=== PATIENT | male | born 1960 | race Caucasian/White ===

== ENCOUNTER 2024-03-29 08:52 | Inpatient (IN) | payer SELFPAY ==
[2024-03-29] VITALS (14 sets, daily range): BP systolic 132–176; BP diastolic 87–99; PULSE 100–120; RESP 16–19; TEMP 36.4–36.7; O2SAT 96–100
--- NOTE | ~2024-03-29 | XR_ITS ---
EXAMINATION: XR chest 2V DATE: 03/29/2024 09:25 INDICATION: Not feeling well. TECHNIQUE: Frontal and lateral views of the chest were obtained. COMPARISON: None. FINDINGS: There is no pneumonia, pleural effusion, or pneumothorax. The heart size is normal. IMPRESSION: 1. No acute cardiopulmonary disease. Reviewed, dictated and finalized at location A.
--- NOTE | ~2024-03-29 | US_ITS ---
EXAMINATION: US right upper quadrant DATE: 04/01/2024 19:22 INDICATION: Abnormal liver function tests. TECHNIQUE: Multiple grayscale and Doppler ultrasound images of the abdomen were obtained. COMPARISON: None FINDINGS: The visualized portions of the head and body of the pancreas are normal. There is diffuse h epatic steatosis. There is normal flow in main portal vein. The gallbladder is normal in size. No gal lstones or gallbladder wall thickening. There is no sonographic Hunt's sign. The common duct is nor mal and measures 3 mm. IMPRESSION: 1. Diffuse hepatic steatosis. Reviewed, dictated and finalized at location A.
--- NOTE | 2024-03-29 09:16 | ECG_ITS ---
Test Date: 2024-03-29 13:27:50 Measurements Intervals [place] Rate: 101 P: 0 ID: 0 QRS: -64 QRSD: 103 T: 60 QT: 342 QTc: 445 Interpretive Statements SINUS TACHYCARDIA LEFT ANTERIOR FASCICULAR BLOCK [QRS AXIS <= -45, QR IN I, RS IN II] ABNORMAL ECG No previous ECG available for comparison Electronically Signed On 03-31-2024 07:10:16 CDT by Cornelio Estrada M.D.
[2024-03-29 09:53] LABS: Add Urine Microscopic? NO; Appearance Urine Clear (Clear); Bilirubin Urine Negative (Negative); Blood Urine Negative (Negative); Color Urine Yellow (Yellow); Glucose Urine UA Negative (Negative); Ketones Urine Negative (Negative); Leukocyte Esterase Ur Negative LEU/UL (Negative); Nitrate Urine Negative (Negative); Protein Urine Negative (Negative); Specific Grav Ur 1.006 (1.001-1.035)
[2024-03-29 10:02] LABS: Alanine Aminotransferase 224 U/L (6-50); Albumin Level 4.5 g/dL (3.5-5.1); Alkaline Phosphatase 90 U/L (38-126); Anion Gap 20 mmol/L (4-12); Aspartate Amino Transferase 243 U/L (17-59); Bilirubin,Total 1.1 mg/dL (0.2-1.3); Blood Urea Nitrogen 5 mg/dL (9-20); Calcium 8.3 mg/dL (8.4-10.2); Carbon Dioxide 19 mmol/L (22-30); Chloride 81 mmol/L (98-107); Estimated CRCL calculation 126 ml/min; Estimated Glomerular Filt Rate > 60; Glucose 105 mg/dL (65-110); Sodium 120 mmol/L (137-145)
[2024-03-29 10:04] LABS: Ethanol 297 mg/dL (<10)
[2024-03-29] MEDS: SODIUM CHLORIDE 0.9% IV 1,000 ML 999 ML IV CONT ×3 (10:21→11:21)
--- NOTE | 2024-03-29 10:28 | ED.ALCOHOL ---
HPI - Alcohol General Chief Complaint: Alcohol Stated Complaint: tremors from etoh Time Seen by Provider: 03/29/24 09:58 History of Present Illness HPI narrative: This is a 63-year-old male with a past medical different for hypertension and alcohol use disorder. Today patient presents in custody from police after a DUI. Patient presented to the police station and told him he was not feeling well so they brought him to the emergency department for evaluation. Patient states he feels nauseous and having tremors and feels like he is going through alcohol withdrawal. His last drink was 3 hours prior to arrival to the emergency department. He has been binge drinking a case of beer for the last 5 days. Patient states he has gone through withdrawals before but has no history of withdrawal seizures. He states he has had periods of sobriety lasting approximately 6 months but does have frequent binge drinking episodes. Presently is awake alert and oriented states that he has tremors and feeling dehydrated as well nauseous. Denies any chest pain, shortness a breath, abdominal pain, back pain, fever, chills. Is answering all my questions appropriately and does appear clinically intoxicated at this time. Patient is not taking medications presently. Related Data Allergies Allergy/AdvReac Type Severity Reaction Status Date / Time No Known Allergies Allergy Mild Unverified 11/13/04 17:44 Review of Systems Review of Systems: As reviewed above in HPI Exam Narrative: GENERAL: Well-appearing well-nourished but is acutely intoxicated, clinically dehydrated. HEAD: [Normocephalic, atraumatic.] EYES: [PERRLA and EOMI.] No nystagmus ENT: Nares clear, no rhinorrhea or epistaxis. Mucous membranes dry, no tongue fasciculations noted. NECK: Supple. CHEST: [Clear to auscultation. No respiratory distress.] HEART: [Regular rate and rhythm]. No murmur heard. [Normal peripheral pulses.] ABDOMEN: [Soft, nondistended], [nontender], [No rigidity or guarding] EXTREMITIES: Normal range of motion. [No edema.] SKIN: Warm, dry, no rash. NEURO: [No focal deficits]. Alert and oriented [x3.] Fine tremor in the bilateral upper extremities, no ataxia, awake alert and answering all questions appropriately. PSYCH: [Normal mood and affect.] Course Vital Signs Vital signs: Vital Signs Temperature 36.6 C 03/29/24 09:11 Pulse Rate 102 H 03/29/24 09:11 Respiratory Rate 18 03/29/24 09:11 Blood Pressure 148/93 H 03/29/24 09:11 Pulse Oximetry 97 03/29/24 09:11 Oxygen Delivery Room Air 03/29/24 09:11 Temperature 36.6 C 03/29/24 09:11 Pulse Rate 102 H 03/29/24 09:11 Respiratory Rate 18 03/29/24 09:11 Blood Pressure 148/93 H 03/29/24 09:11 Pulse Oximetry 97 03/29/24 09:11 Oxygen Delivery Room Air 03/29/24 09:11 MDM - Alcohol MDM Narrative Medical decision making narrative: This is a 63-year-old male significant alcohol use history who presents to the emergency department in police custody patient was arrested for DUI this morning. He states last drink was 3 hours prior to arrival and states he feels like he is going to his traumas he is nauseous and having bilateral extremity shaking. Has a history of withdrawal seizures. He does not have any tongue fasciculations examination and very minor fine tremor noted in bilateral upper extremities. He is awake alert oriented answers all my questions appropriately. He does appear intoxicated but not slurring his speech and conscious presently. Differential diagnosis at this time includes alcohol intoxication, less likely alcohol withdrawal, electrolyte disturbances, hyponatremia, vitamin deficiency. Workup was ordered including electrolytes, CBC, chest x-ray, alcohol level. He was given a 2 L normal saline bolus. Initial laboratory studies showed significant hyponatremia while a sodium 120 of chloride of 81. This will be repeated for accuracy prior to treatment. He was also
[2024-03-29 10:31] LABS: Basophils Percent Auto 0.7 % (0.2-1.2); Eosinophils Absolute Auto 0.1 K/mm3 (0-0.3); Eosinophils Percent Auto 1.2 % (0-4.4); Hematocrit 47.4 % (42.0-52.0); Hemoglobin 17.1 g/dL (14.0-18.0); Immature Granulocyte Absolute 0.01 K/mm3 (0.00-0.031); Immature Granulocyte Percent A 0.2 % (0-0.5); Immature Platelet Fraction Pct 5.5 % (0.9-11.2); Lymphocytes Absolute Auto 0.82 K/mm3 (0.9-3.2); Mean Corpuscular HGB Conc 36.1 g/dl (32-36); Mean Corpuscular Hemoglobin 32.3 pg (26-34); Mean Corpuscular Volume 89.4 fl (80-100); Mean Platelet Volume 9.4 fl (7.4-10.4); Monocytes Absolute Auto 0.5 K/mm3 (0.1-0.6); Monocytes Percent Auto 11.3 % (2.6-8.5); Neutrophils Absolute Auto 2.9 K/mm3 (1.3-6.7); Neutrophils Percent Auto 67.6 % (45.5-73.1); Platelet Count Result 96 k/mm3 (150-375); Red Cell Distribution Width 13.2 % (11.5-14.5); White Blood Count 4.3 K/mm3 (4.5-10.0)
[2024-03-29] MEDS: FOLIC ACID 1 MG TABLET PO (11:20)
[2024-03-29] MEDS: THIAMINE HCL 200 MG/2 ML VIAL 300 MG IV PUSH (11:24)
[2024-03-29] MEDS: MULTIVITAMINS-12 INJ VIAL 1 5 ML, MULTIVITAMINS-12 INJ VIAL 2 5 ML in SODIUM CHLORIDE 0... 100 ML IV CONT (11:24)
[2024-03-29] MEDS: MAGNESIUM SULF 2 GM/WATER 50ML 2 GM/50 ML BAG IVPB (11:25)
[2024-03-29 12:23] LABS: Anion Gap 16 mmol/L (4-12); Blood Urea Nitrogen 4 mg/dL (9-20); Calcium 7.6 mg/dL (8.4-10.2); Carbon Dioxide 17 mmol/L (22-30); Chloride 89 mmol/L (98-107); Estimated CRCL calculation 149 ml/min; Estimated Glomerular Filt Rate > 60; Glucose 88 mg/dL (65-110); Potassium 3.8 mmol/L (3.4-5.0); Sodium 122 mmol/L (137-145)
[2024-03-29] MEDS: PHENobarbitaL sodium (*CRX) 130 MG/ML VIAL 520 MG IV PUSH (15:08)
[2024-03-29] MEDS: ONDANSETRON INJ 4 MG/2 ML VIAL IV PUSH ×2 (15:08→21:02)
[2024-03-29] MEDS: SODIUM CHLORIDE 0.9% IV 1,000 ML 125 ML IV CONT (15:08)
--- NOTE | 2024-03-29 16:29 | PM.IMHP ---
H&P: HPI History of Present Illness Date/Time: 03/29/24 16:29 Chief Complaint: alcohol withdrawal Narrative: This is a 63-year-old male with a past medical history alcoholism and hypertension who presented to the hospital with nausea and tremors. He presented in the custody of police after receiving a DUI and was reported to not be feeling well at the police station and they brought him here for further evaluation. patient states that he drinks about 1 case of beer a day on average and does not eat a balanced diet. He reports tremors, nausea and headache. He denies any vomiting, diarrhea, abdominal pain, chest pain, shortness a breath, fever, chills. He denies suicidal ideations at this time however whenever he was in college he did have suicidal ideations. Workup in the hospital included chest x-ray which was negative. Initial labs showed a sodium of 120, chloride 81, bicarb 19, AST 243, ALT 224. UA was negative. Alcohol level was 297. Patient received 2 L of normal saline, thiamin, folic acid, magnesium, Zofran, and 2 doses of phenobarbital all in the ED. Review of Systems Review of Systems: All systems reviewed & are unremarkable except as noted in HPI and below Constitutional: Constitutional: Reports as per HPI and Reports no additional constitutional complaints Eyes: Eyes: Reports as per HPI and Reports no additional eye complaints ENT: Reports system reviewed and no additional complaints, except as documented and Reports as per HPI Cardiovascular: Cardiovascular: Reports as per HPI and Reports no additional cardiovascular complaints Respiratory: Respiratory: Reports as per HPI and Reports no additional respiratory complaints Gastrointestinal: Gastrointestinal: Reports as per HPI and Reports no additional gastrointestinal complaints Genitourinary: Genitourinary: Reports no additional male genitourinary complaints and Reports as per HPI Musculoskeletal: Musculoskeletal: Reports no additional musculoskeletal complaints and Reports as per HPI Integumentary/Breasts: Skin/Breast: Reports system reviewed and no additional complaints, except as docu and Reports as per HPI Neurologic: Reports system reviewed and no additional complaints, except as documented and Reports as per HPI Psychiatric: Psychiatric: Reports no additional psychiatric complaints and Reports as per HPI [facility] Past Medical History Medical History (Updated 03/30/24 @ 00:12 by Codie Boo APRN) Alcohol abuse Alcohol withdrawal syndrome Anxiety Family History Family History (Updated 03/29/24 @ 19:09 by Elena Ponce RN) Father Acute myocardial infarction Social History Social History Smoking status: Never smoker Drinks per week: 70 Substance use: never Substance use type: does not use Do You Feel Safe in your Home?: Yes Lack of Transportation: No Lack of Food: Never True Current Housing: I Have Housing Concerned About Future Housing: No Difficulty Paying Gas/Electric Bills: No Difficulty Paying for Meds: No Currently Unemployed: No Education: Master's Degree or Higher Difficulty w/ Childcare or Family Care: No Spiritual care concerns: No Meds Home Medications and Allergies Home Medications Medication Instructions Recorded Confirmed Type No Home Medications 03/29/24 03/29/24 History Allergies Allergy/AdvReac Type Severity Reaction Status Date / Time No Known Allergies Allergy Mild Unverified 11/13/04 17:44 Vital Signs Vital Signs - 24 hr 03/29/24 09:11 03/29/24 10:00 03/29/24 12:00 Temperature 97.9 F 97.7 F 97.9 F Pulse Rate 102 H 109 H 104 H Respiratory Rate 18 16 16 Blood Pressure 148/93 H 132/92 H 143/92 H Pulse Oximetry 97 99 96 Oxygen Delivery Room Air 03/29/24 11:00 03/29/24 15:00 03/29/24 13:00 Temperature 97.6 F 97.8 F 97.7 F Pulse Rate 102 H 103 H 100 Respiratory Rate 16 16 16 Blood Pressure 1
[2024-03-29] MEDS: chlordiazePOXIDE (*CRX) 25 MG CAPSULE PO ×2 (18:45→23:40)
[2024-03-29 18:48] LABS: Sodium 122 mmol/L (137-145)
--- NOTE | 2024-03-29 19:22 | PC.NURSE ---
Patient states he is supposed to take an nohelia inhibitor for BP, but doesn't . Patient does not recall the name of the medication and has not taken any medication for at least one month.
[2024-03-29] MEDS: LORazepam INJ (*CRX) 2 MG/ML VIAL IV PUSH (22:24)
--- NOTE | 2024-03-29 23:30 | PC.NURSE ---
This patient, Chong Gonzales, was admitted to IMU Room 211-01 03/29/24 at 2320. Patient/family oriented to hospital policies and general routines including ID bracelet, bed and alarms, visiting hours, pain management, procedures, bathroom and other care routines, personal items, smoking policy, room service/diet, and visiting hours. Patient/Family are encouraged to report perceived risks to care and to ask questions if they do not understand what they are told or what they should do.
[2024-03-30] VITALS (19 sets, daily range): BP systolic 136–152; BP diastolic 70–87; PULSE 72–108; RESP 18–20; TEMP 36.1–36.6; O2SAT 96–100; BMI 23.9
[2024-03-30 00:07] LABS: Glucose Point of Care 139 mg/dl (65-105)
[2024-03-30] MEDS: LORazepam INJ (*CRX) 2 MG/ML VIAL IV PUSH ×6 (00:52→19:48)
[2024-03-30] MEDS: SODIUM CHLORIDE 0.9% IV 1,000 ML 125 ML IV CONT ×3 (03:09→22:15)
[2024-03-30 05:38] LABS: Basophils Percent Auto 0.3 % (0.2-1.2); Eosinophils Percent Auto 0.6 % (0-4.4); Hemoglobin 15.1 g/dL (14.0-18.0); Immature Granulocyte Absolute 0.01 K/mm3 (0.00-0.031); Immature Granulocyte Percent A 0.3 % (0-0.5); Immature Platelet Fraction Pct 5.4 % (0.9-11.2); Lymphocytes Absolute Auto 0.66 K/mm3 (0.9-3.2); Lymphocytes Percent Auto 18.4 % (18.3-44.2); Mean Corpuscular Hemoglobin 33.5 pg (26-34); Mean Corpuscular Volume 93.1 fl (80-100); Mean Platelet Volume 9.8 fl (7.4-10.4); Monocytes Absolute Auto 0.4 K/mm3 (0.1-0.6); Monocytes Percent Auto 11.7 % (2.6-8.5); Neutrophils Absolute Auto 2.5 K/mm3 (1.3-6.7); Neutrophils Percent Auto 68.7 % (45.5-73.1); Platelet Count Result 66 k/mm3 (150-375); Red Blood Count 4.51 M/mm3 (4.6-6.20); Red Cell Distribution Width 13.6 % (11.5-14.5); White Blood Count 3.6 K/mm3 (4.5-10.0)
[2024-03-30 06:04] LABS: Alanine Aminotransferase 153 U/L (6-50); Albumin Level 3.8 g/dL (3.5-5.1); Alkaline Phosphatase 70 U/L (38-126); Anion Gap 8 mmol/L (4-12); Aspartate Amino Transferase 143 U/L (17-59); Bilirubin,Total 2.1 mg/dL (0.2-1.3); Blood Urea Nitrogen 2 mg/dL (9-20); Calcium 7.7 mg/dL (8.4-10.2); Carbon Dioxide 26 mmol/L (22-30); Chloride 90 mmol/L (98-107); Estimated CRCL calculation 126 ml/min; Estimated Glomerular Filt Rate > 60; Glucose 124 mg/dL (65-110); Potassium 3.1 mmol/L (3.4-5.0); Sodium 124 mmol/L (137-145)
[2024-03-30] MEDS: chlordiazePOXIDE (*CRX) 25 MG CAPSULE PO ×2 (06:35→12:26)
[2024-03-30] MEDS: ONDANSETRON INJ 4 MG/2 ML VIAL IV PUSH (08:55)
[2024-03-30] MEDS: THIAMINE HCL INJ 300 MG in SODIUM CHLORIDE 0.9% IV 100 ML 206 MG IVPB (08:55)
[2024-03-30] MEDS: MULTIVITAMINS THERAPEUTIC TAB (*BKC) 1 TABLET PO (08:56)
[2024-03-30] MEDS: FOLIC ACID 1 MG TABLET PO (08:56)
[2024-03-30] MEDS: ARTIFICIAL TEARS OPHTH SOLN 15 ML BOTTLE 1 DROP EACH EYE (12:31)
[2024-03-30 12:59] LABS: Glucose Point of Care 110 mg/dl (65-105)
--- NOTE | 2024-03-30 15:07 | PM.IMPN ---
Progress Note: A&P Assessment and Plan (1) Alcohol withdrawal syndrome: Code(s): F10.939 - Alcohol use, unspecified with withdrawal, unspecified Status: Acute Assessment and Plan: 03/29/24: patient has history of alcohol abuse and has reported drinking 1 case of beer a day for the last 5 days. Currently in police custody for a DUI. reporting nausea and tremors. [facility] protocol ordered patient was given thiamin, folic acid, phenobarbital, magnesium, 1 L IV fluids while in the ED Will admit to IMU for closer observation continuous telemetry monitoring alcohol level 297 on arrival to the ED AST 243, ALT 224 (2) Alcoholic intoxication: Code(s): F10.929 - Alcohol use, unspecified with intoxication, unspecified Status: Acute Assessment and Plan: see above (3) Transaminitis: Code(s): R74.01 - Elevation of levels of liver transaminase levels Status: Acute Assessment and Plan: 03/29/24: AST 243, ALT 224 likely related to his alcoholism continue to trend (4) Acute hyponatremia: Code(s): E87.1 - Hypo-osmolality and hyponatremia Status: Acute Assessment and Plan: 03/29/24: hyponatremia likely due to beer potomania initial sodium 120 patient received 2 L of normal saline while in the ED and repeat sodium was 122 continue IV fluids at 125 mL/hour seizure precautions continue to trend Plan Is a 63-year-old male who presents with nausea and worse. He presented the custody of police after receiving a DUI and was reported to be not feeling well at the police station they brought him here for further evaluation. Patient stated that he drinks about 1 case of beer every day average and does not eat a balanced diet. He reports tremor nausea and headache. No vomiting diarrhea abdominal pain chest pain shortness of breath fever chills. Workup in the ER revealed chest x-ray negative initial labs show sodium of a level of 120 chloride 81 bicarb 19 AST 243 T2 24 UA is negative alcohol level was 297. Patient received 2 stated magnesium Zofran and 2 doses of phenobarbital in the ED. He was then admitted for further treatment. Patient with alcohol withdrawal. [facility] protocol to continue said continue to trend liver enzymes Alcohol intoxication with alcohol withdrawal Hyponatremia normal saline will continue Hypokalemia replace and monitor Hypertension continue to monitor DVT prophylaxis Subjective Date/time seen: 03/30/24 15:07 Interval history: Patient stills tremulous high CIWA score. Denies any abdominal pain nausea vomiting. Sodium level still low. Drinks plenty of beer daily Review of Systems Review of Systems: All systems reviewed & are unremarkable except as noted in HPI and below Exam Narrative: General: In no acute distress, malnourished tremulous Head: atraumatic, normocephalic Eyes: EOMI, PERRLA, sclera injected ENT: moist mucous membranes, nasal passages clear Neck: supple, no JVD, no adenopathy, trachea midline Cardiac: Normal S1 and S2. Regular rate No murmur, gallops or friction rubs, peripheral pulses intact. Respiratory: Lungs clear to auscultation, no adventitious lung sounds, currently on room air Gastrointestinal: soft, non-distended, non-tender, normoactive bowel sounds. : voiding without difficulty. Extremities: moves all extremities well, no edema, tremors noted bilateral upper extremity Skin: clean, dry, intact. No wounds or lesions. Neuro: Alert and oriented x4, cranial nerves intact, no neuro deficits. Psych: normal mood, normal affect, interactive. Denies any audible or visual hallucination Objective Data Vital Signs Vital Signs: Vital Signs - 24 hr 03/29/24 16:00 03/29/24 18:19 03/29/24 17:00 Temperature 97.9 F 97.7 F 97.7 F Pulse Rate 106 H 106 H 106 H Pulse Rate [Monitor] Respiratory Rate 18 16 16 Blood Pressure 158/89 H 176/97 H 161/98 H Pulse Oximetry 100 100 97 Oxygen Delive
[2024-03-30 16:15] LABS: Alanine Aminotransferase 130 U/L (6-50); Albumin Level 3.8 g/dL (3.5-5.1); Alkaline Phosphatase 77 U/L (38-126); Anion Gap 9 mmol/L (4-12); Aspartate Amino Transferase 120 U/L (17-59); Bilirubin,Total 2.1 mg/dL (0.2-1.3); Blood Urea Nitrogen 4 mg/dL (9-20); Calcium 8.1 mg/dL (8.4-10.2); Carbon Dioxide 25 mmol/L (22-30); Chloride 90 mmol/L (98-107); Estimated CRCL calculation 149 ml/min; Estimated Glomerular Filt Rate > 60; Glucose 98 mg/dL (65-110); Magnesium 1.7 mg/dL (1.6-2.3); Potassium 3.3 mmol/L (3.4-5.0); Sodium 124 mmol/L (137-145)
[2024-03-30] MEDS: PROCHLORPERAZINE EDISYLATE 10 MG/2 ML VIAL IV PUSH (17:27)
[2024-03-30] MEDS: chlordiazePOXIDE (*CRX) 25 MG CAPSULE 50 MG PO (17:27)
[2024-03-30 18:29] LABS: Glucose Point of Care 86 mg/dl (65-105)
[2024-03-30] MEDS: POTASSIUM CHLORIDE 20 MEQ ER TABLET 40 MEQ PO (19:45)
[2024-03-30] MEDS: MAGNESIUM SULF 1 GM/D5W 100 ML 1 GM/100 ML BAG IVPB (19:48)
[2024-03-31] VITALS (17 sets, daily range): BP systolic 115–135; BP diastolic 57–87; PULSE 79–120; RESP 16–20; TEMP 36.2–36.6; O2SAT 98–100
[2024-03-31 00:20] LABS: Glucose Point of Care 104 mg/dl (65-105)
[2024-03-31] MEDS: LORazepam INJ (*CRX) 2 MG/ML VIAL IV PUSH ×6 (01:24→23:50)
[2024-03-31] MEDS: chlordiazePOXIDE (*CRX) 25 MG CAPSULE 50 MG PO ×5 (01:25→23:51)
[2024-03-31] MEDS: LOPERAMIDE HCL 2 MG CAPSULE PO ×3 (03:54→20:57)
[2024-03-31 05:39] LABS: Basophils Percent Auto 0.7 % (0.2-1.2); Eosinophils Absolute Auto 0.1 K/mm3 (0-0.3); Eosinophils Percent Auto 1.7 % (0-4.4); Hematocrit 43.5 % (42.0-52.0); Hemoglobin 15.3 g/dL (14.0-18.0); Immature Granulocyte Absolute 0.01 K/mm3 (0.00-0.031); Immature Granulocyte Percent A 0.3 % (0-0.5); Lymphocytes Absolute Auto 0.71 K/mm3 (0.9-3.2); Lymphocytes Percent Auto 24.8 % (18.3-44.2); Mean Corpuscular HGB Conc 35.2 g/dl (32-36); Mean Corpuscular Hemoglobin 33.6 pg (26-34); Mean Corpuscular Volume 95.6 fl (80-100); Mean Platelet Volume 12.5 fl (7.4-10.4); Monocytes Absolute Auto 0.4 K/mm3 (0.1-0.6); Monocytes Percent Auto 12.9 % (2.6-8.5); Neutrophils Absolute Auto 1.7 K/mm3 (1.3-6.7); Neutrophils Percent Auto 59.6 % (45.5-73.1); Platelet Count Result 124 k/mm3 (150-375); Red Blood Count 4.55 M/mm3 (4.6-6.20); Red Cell Distribution Width 13.8 % (11.5-14.5); White Blood Count 2.9 K/mm3 (4.5-10.0)
[2024-03-31 05:52] LABS: Glucose Point of Care 92 mg/dl (65-105)
[2024-03-31] MEDS: SODIUM CHLORIDE 0.9% IV 1,000 ML 125 ML IV CONT (09:19)
[2024-03-31] MEDS: MULTIVITAMINS THERAPEUTIC TAB (*BKC) 1 TABLET PO (09:20)
[2024-03-31] MEDS: FOLIC ACID 1 MG TABLET PO (09:21)
[2024-03-31 10:32] LABS: Alanine Aminotransferase 103 U/L (6-50); Albumin Level 3.9 g/dL (3.5-5.1); Alkaline Phosphatase 65 U/L (38-126); Anion Gap 11 mmol/L (4-12); Aspartate Amino Transferase 96 U/L (17-59); Bilirubin,Total 1.3 mg/dL (0.2-1.3); Blood Urea Nitrogen 2 mg/dL (9-20); Calcium 8.2 mg/dL (8.4-10.2); Carbon Dioxide 24 mmol/L (22-30); Chloride 94 mmol/L (98-107); Estimated CRCL calculation 126 ml/min; Estimated Glomerular Filt Rate > 60; Glucose 107 mg/dL (65-110); Magnesium 1.8 mg/dL (1.6-2.3); Potassium 2.9 mmol/L (3.4-5.0); Sodium 129 mmol/L (137-145)
[2024-03-31] MEDS: POTASSIUM CHLORIDE 20 MEQ ER TABLET 40 MEQ PO (11:21)
[2024-03-31] MEDS: MAGNESIUM SULF 2 GM/WATER 50ML 2 GM/50 ML BAG IVPB (11:52)
[2024-03-31] MEDS: THIAMINE HCL INJ 300 MG in SODIUM CHLORIDE 0.9% IV 100 ML 206 MG IVPB (11:52)
[2024-03-31 12:04] LABS: Glucose Point of Care 118 mg/dl (65-105)
--- NOTE | 2024-03-31 14:22 | PM.IMPN ---
Progress Note: A&P Assessment and Plan (1) Alcohol withdrawal syndrome: Code(s): F10.939 - Alcohol use, unspecified with withdrawal, unspecified Status: Acute (2) Alcoholic intoxication: Code(s): F10.929 - Alcohol use, unspecified with intoxication, unspecified Status: Acute (3) Transaminitis: Code(s): R74.01 - Elevation of levels of liver transaminase levels Status: Acute (4) Acute hyponatremia: Code(s): E87.1 - Hypo-osmolality and hyponatremia Status: Acute Plan Is a 63-year-old male who presents with nausea and worse. He presented the custody of police after receiving a DUI and was reported to be not feeling well at the police station they brought him here for further evaluation. Patient stated that he drinks about 1 case of beer every day average and does not eat a balanced diet. He reports tremor nausea and headache. No vomiting diarrhea abdominal pain chest pain shortness of breath fever chills. Workup in the ER revealed chest x-ray negative initial labs show sodium of a level of 120 chloride 81 bicarb 19 AST 243 T2 24 UA is negative alcohol level was 297. Patient received 2 stated magnesium Zofran and 2 doses of phenobarbital in the ED. He was then admitted for further treatment. Patient with alcohol withdrawal. CIWA protocol to continue said continue to trend liver enzymes LFTs improved Alcohol intoxication with alcohol withdrawal Hyponatremia normal saline will continue slowly improving Hypokalemia replace and monitor replace Mag Thrombocytopenia Hypertension continue to monitor Diarrhea reported 03/31/2024 will check C diff DVT prophylaxis Subjective Date/time seen: 03/31/24 14:22 Interval history: No overnight events. Still tremulous. CIWA score is still elevated but stable. Review of Systems Review of Systems: All systems reviewed & are unremarkable except as noted in HPI and below Exam Narrative: General: In no acute distress, malnourished tremulous Head: atraumatic, normocephalic Eyes: EOMI, PERRLA, sclera injected ENT: moist mucous membranes, nasal passages clear Neck: supple, no JVD, no adenopathy, trachea midline Cardiac: Normal S1 and S2. Regular rate No murmur, gallops or friction rubs, peripheral pulses intact. Respiratory: Lungs clear to auscultation, no adventitious lung sounds, currently on room air Gastrointestinal: soft, non-distended, non-tender, normoactive bowel sounds. : voiding without difficulty. Extremities: moves all extremities well, no edema, tremors noted bilateral upper extremity Skin: clean, dry, intact. No wounds or lesions. Neuro: Alert and oriented x4, cranial nerves intact, no neuro deficits. Psych: normal mood, normal affect, interactive. Denies any audible or visual hallucination Objective Data Vital Signs Vital Signs: Vital Signs - 24 hr 03/30/24 15:07 03/30/24 16:00 03/30/24 16:00 Temperature Pulse Rate Pulse Rate [Monitor] 88 88 Respiratory Rate Blood Pressure Pulse Oximetry 100 Oxygen Delivery Room Air Fraction of Inspired Oxygen 03/30/24 16:50 03/30/24 16:00 03/30/24 18:00 Temperature 96.9 F L Pulse Rate 94 86 105 H Pulse Rate [Monitor] Respiratory Rate 20 Blood Pressure 136/74 Pulse Oximetry 96 Oxygen Delivery Fraction of Inspired Oxygen 03/30/24 19:57 03/30/24 20:00 03/30/24 20:00 Temperature 97.9 F Pulse Rate 103 H 92 92 Pulse Rate [Monitor] Respiratory Rate 20 20 Blood Pressure 140/70 Pulse Oximetry 100 100 Oxygen Delivery Room Air Fraction of Inspired Oxygen 03/30/24 22:00 03/30/24 23:26 03/31/24 00:00 Temperature 97.8 F Pulse Rate 88 99 87 Pulse Rate [Monitor] Respiratory Rate 18 Blood Pressure 144/84 H Pulse Oximetry 98 Oxygen Delivery Fraction of Inspired Oxygen 03/31/24 00:00 03/31/24 00:00 03/31/24 02:00 Temperature Pulse Rate 87 99 Pulse Rate [Monitor] 88 Respiratory Rate 18
[2024-03-31] MEDS: DEXTROSE 5%/0.9% SOD CHL 1,000 ML 75 ML IV CONT (17:37)
[2024-03-31 17:47] LABS: Glucose Point of Care 92 mg/dl (65-105)
[2024-04-01] VITALS (10 sets, daily range): BP systolic 117–144; BP diastolic 60–84; PULSE 74–88; RESP 18–20; TEMP 35.9–36.6; O2SAT 97–100
[2024-04-01 04:53] LABS: Eosinophils Absolute Auto 0.2 K/mm3 (0-0.3); Eosinophils Percent Auto 4.4 % (0-4.4); Hematocrit 41.9 % (42.0-52.0); Hemoglobin 14.6 g/dL (14.0-18.0); Immature Granulocyte Absolute 0.02 K/mm3 (0.00-0.031); Immature Granulocyte Percent A 0.5 % (0-0.5); Immature Platelet Fraction Pct 9.3 % (0.9-11.2); Lymphocytes Absolute Auto 1.26 K/mm3 (0.9-3.2); Lymphocytes Percent Auto 32.4 % (18.3-44.2); Mean Corpuscular HGB Conc 34.8 g/dl (32-36); Mean Corpuscular Volume 94.6 fl (80-100); Mean Platelet Volume 10.6 fl (7.4-10.4); Monocytes Absolute Auto 0.4 K/mm3 (0.1-0.6); Monocytes Percent Auto 10.5 % (2.6-8.5); Neutrophils Percent Auto 51.2 % (45.5-73.1); Platelet Count Result 73 k/mm3 (150-375); Red Blood Count 4.43 M/mm3 (4.6-6.20); Red Cell Distribution Width 13.7 % (11.5-14.5); White Blood Count 3.9 K/mm3 (4.5-10.0)
[2024-04-01 04:55] LABS: Alanine Aminotransferase 87 U/L (6-50); Albumin Level 3.4 g/dL (3.5-5.1); Alkaline Phosphatase 61 U/L (38-126); Anion Gap 8 mmol/L (4-12); Aspartate Amino Transferase 65 U/L (17-59); Calcium 8.3 mg/dL (8.4-10.2); Carbon Dioxide 25 mmol/L (22-30); Chloride 97 mmol/L (98-107); Estimated CRCL calculation 126 ml/min; Estimated Glomerular Filt Rate > 60; Glucose 104 mg/dL (65-110); Magnesium 1.8 mg/dL (1.6-2.3); Potassium 3.1 mmol/L (3.4-5.0); Sodium 130 mmol/L (137-145)
[2024-04-01 05:27] LABS: Blood Urea Nitrogen < 2 mg/dL (9-20)
[2024-04-01] MEDS: chlordiazePOXIDE (*CRX) 25 MG CAPSULE 50 MG PO ×3 (05:51→17:40)
[2024-04-01] MEDS: DEXTROSE 5%/0.9% SOD CHL 1,000 ML 75 ML IV CONT (06:58)
[2024-04-01] MEDS: MULTIVITAMINS THERAPEUTIC TAB (*BKC) 1 TABLET PO (09:05)
[2024-04-01] MEDS: THIAMINE HCL INJ 300 MG in SODIUM CHLORIDE 0.9% IV 100 ML 206 MG IVPB (09:05)
[2024-04-01] MEDS: FOLIC ACID 1 MG TABLET PO (09:06)
--- NOTE | 2024-04-01 11:46 | PM.IMPN ---
Progress Note: A&P Assessment and Plan (1) Alcohol withdrawal syndrome: Code(s): F10.939 - Alcohol use, unspecified with withdrawal, unspecified Status: Acute Assessment and Plan: CIWA score was as high as 25. It has improved over the past few days now down to 7. He remains on scheduled Librium and is tolerating this well. Currently on high-dose thiamine, dextrose and folate. Encouraged oral intake try to limit coffee intake. Will add supplements. Add Protonix. Care coordination has been consulted to provide information about benefits of abstaining from alcohol use Start PT and OT. (2) Alcoholic intoxication: Code(s): F10.929 - Alcohol use, unspecified with intoxication, unspecified Status: Acute Assessment and Plan: Alcohol level elevated on admission ( 03/29/2024) Resolved (3) Transaminitis: Code(s): R74.01 - Elevation of levels of liver transaminase levels Status: Acute Assessment and Plan: Patient with alcoholic hepatitis. LFTs are trending downward as expected. Will check viral hepatitis panel for completeness. Check RUQ ultrasound. (4) Acute hyponatremia: Code(s): E87.1 - Hypo-osmolality and hyponatremia Status: Acute Assessment and Plan: Sodium 120 on admission. Sodium has climbed slowly over the past few days. Suspect related to beer proteinemia. Na 130 today. Stop IV fluids once he is eating better. Plan Hypokalemia - replace again. Mag 1.8 so will replace as well. Thrombocytopenia - Plt count down to 73K. Related to hepatitis/alcohol Hypertension - Patient's blood pressure was reviewed on 04/01. Blood pressure remains well controlled. Diarrhea - CDiff pending. Suspect related to poor oral intake and alcohol use. DVT prophylaxis - SCDs Code status - full Subjective Date/time seen: 04/01/24 11:46 Interval history: 63yo male with alcoholism and HTN here for alcohol withdrawal. Assuming care. Chart reviewed. He still with nausea, shakes and anxiety. he is not eating much but has multiple cups of coffee at bedisde as well as a large coffee pitcher. Diarrhea x 1 today. Exam Narrative: AF 97.0 132/77 75 18 97% ra Gen - NARD Chest - CTA bilaterally, nml RR CV - RRR S1/S2. Telemetry showing no significant dysrhythmias Abd - Soft, NT/ND, Positive BS Ext - No pedal edema Neuro - Alert and appropriate. Nonfocal exam. Psych - Nml mood and affect. mild tremors noted Skin - Warm and dry Objective Data Vital Signs Vital Signs: Vital Signs - 24 hr 03/31/24 11:56 03/31/24 12:00 03/31/24 12:00 Temperature 97.1 F L Pulse Rate 92 108 H Pulse Rate [Monitor] 96 Respiratory Rate 20 Blood Pressure 123/68 Pulse Oximetry 100 Oxygen Delivery 03/31/24 14:00 03/31/24 12:00 03/31/24 16:00 Temperature Pulse Rate 82 Pulse Rate [Monitor] Respiratory Rate Blood Pressure Pulse Oximetry 100 100 Oxygen Delivery Room Air Room Air 03/31/24 16:00 03/31/24 16:00 03/31/24 20:08 Temperature 98 F 97.9 F Pulse Rate 95 107 H 118 H Pulse Rate [Monitor] Respiratory Rate 16 20 Blood Pressure 123/57 L 115/77 Pulse Oximetry 100 98 Oxygen Delivery 03/31/24 18:00 03/31/24 20:00 03/31/24 20:00 Temperature Pulse Rate 120 H Pulse Rate [Monitor] 110 H Respiratory Rate Blood Pressure Pulse Oximetry 98 Oxygen Delivery Room Air 03/31/24 20:00 03/31/24 23:45 04/01/24 00:00 Temperature 97.9 F Pulse Rate 120 H 82 Pulse Rate [Monitor] 74 Respiratory Rate 20 Blood Pressure 131/81 Pulse Oximetry 100 Oxygen Delivery 04/01/24 00:00 04/01/24 00:00 04/01/24 02:00 Temperature Pulse Rate 84 75 Pulse Rate [Monitor] Respiratory Rate Blood Pressure Pulse Oximetry 100 Oxygen Delivery Room Air 04/01/24 04:00 04/01/24 04:00 04/01/24 04:00 Temperature 98 F Pulse Rate 76 Pulse Rate [Monitor] 74
[2024-04-01] MEDS: PANTOPRAZOLE 40 MG TABLET PO ×2 (12:12→20:57)
[2024-04-01] MEDS: POTASSIUM CHLORIDE 20 MEQ ER TABLET 40 MEQ PO (12:12)
[2024-04-01] MEDS: MAGNESIUM SULF 2 GM/WATER 50ML 2 GM/50 ML BAG IVPB (12:13)
[2024-04-01 12:16] LABS: Glucose Point of Care 117 mg/dl (65-105)
--- NOTE | 2024-04-01 15:31 | PCPTNOTE ---
On 04/01/24, the student, [Marian Barton], provided care and completed [facility] documentation on this patient. I have reviewed the student's documentation and agree with the findings.
[2024-04-01 18:40] LABS: Glucose Point of Care 108 mg/dl (65-105)
--- NOTE | 2024-04-01 23:50 | PC.NURSE ---
This patient, Chong Gonzales, was transferred to [facility] on 04/01/24 at 2340. Personal belongings sent with patient. Report given to DANIEL García. Appropriate documentation sent with patient.
[2024-04-02] VITALS (7 sets, daily range): BP systolic 116–122; BP diastolic 75–86; PULSE 76–86; RESP 13–18; TEMP 36.3–36.7; O2SAT 97–99
--- NOTE | 2024-04-02 | PC.NURSE ---
This patient, Chong Gonzales, was received from IMU on 04/02/24 at 0045. Patient/family oriented to unit policies and routines
[2024-04-02] MEDS: chlordiazePOXIDE (*CRX) 25 MG CAPSULE 50 MG PO ×4 (00:16→17:45)
[2024-04-02 00:20] LABS: Glucose Point of Care 100 mg/dl (65-105)
[2024-04-02 06:32] LABS: Glucose Point of Care 126 mg/dl (65-105)
[2024-04-02 06:39] LABS: Basophils Absolute Auto 0.1 K/mm3 (0.0-0.1); Basophils Percent Auto 1.3 % (0.2-1.2); Eosinophils Absolute Auto 0.2 K/mm3 (0-0.3); Eosinophils Percent Auto 4.3 % (0-4.4); Hemoglobin 14.6 g/dL (14.0-18.0); Immature Granulocyte Absolute 0.02 K/mm3 (0.00-0.031); Immature Granulocyte Percent A 0.5 % (0-0.5); Immature Platelet Fraction Pct 6.4 % (0.9-11.2); Lymphocytes Absolute Auto 1.01 K/mm3 (0.9-3.2); Lymphocytes Percent Auto 25.4 % (18.3-44.2); Mean Corpuscular HGB Conc 34.8 g/dl (32-36); Mean Corpuscular Hemoglobin 33.5 pg (26-34); Mean Corpuscular Volume 96.3 fl (80-100); Mean Platelet Volume 10.4 fl (7.4-10.4); Monocytes Absolute Auto 0.4 K/mm3 (0.1-0.6); Monocytes Percent Auto 10.8 % (2.6-8.5); Neutrophils Absolute Auto 2.3 K/mm3 (1.3-6.7); Neutrophils Percent Auto 57.7 % (45.5-73.1); Platelet Count Result 101 k/mm3 (150-375); Red Blood Count 4.36 M/mm3 (4.6-6.20); Red Cell Distribution Width 13.7 % (11.5-14.5)
[2024-04-02 06:57] LABS: Magnesium 1.7 mg/dL (1.6-2.3)
[2024-04-02 07:04] LABS: Alanine Aminotransferase 84 U/L (6-50); Albumin Level 3.7 g/dL (3.5-5.1); Alkaline Phosphatase 61 U/L (38-126); Anion Gap 10 mmol/L (4-12); Aspartate Amino Transferase 76 U/L (17-59); Bilirubin,Total 0.8 mg/dL (0.2-1.3); Calcium 8.4 mg/dL (8.4-10.2); Carbon Dioxide 26 mmol/L (22-30); Chloride 93 mmol/L (98-107); Estimated CRCL calculation 110 ml/min; Estimated Glomerular Filt Rate > 60; Glucose 142 mg/dL (65-110); Potassium 3.2 mmol/L (3.4-5.0); Sodium 129 mmol/L (137-145)
[2024-04-02 07:18] LABS: Blood Urea Nitrogen < 2 mg/dL (9-20)
[2024-04-02 07:57] LABS: Folic Acid 12.1 ng/mL (2.76->20)
[2024-04-02] MEDS: LORazepam INJ (*CRX) 2 MG/ML VIAL IV PUSH ×2 (09:01→15:03)
[2024-04-02] MEDS: FOLIC ACID 1 MG TABLET PO (09:02)
[2024-04-02] MEDS: THIAMINE HCL 100 MG TABLET PO (09:02)
[2024-04-02] MEDS: PANTOPRAZOLE 40 MG TABLET PO (09:02)
[2024-04-02] MEDS: MULTIVITAMINS THERAPEUTIC TAB (*BKC) 1 TABLET PO (09:02)
[2024-04-02] MEDS: ENOXAPARIN 40 MG/0.4 ML SYRINGE SUB-Q (09:03)
[2024-04-02] MEDS: MAGNESIUM SULF 2 GM/WATER 50ML 2 GM/50 ML BAG IVPB (09:07)
[2024-04-02] MEDS: POTASSIUM CHLORIDE 20 MEQ ER TABLET 40 MEQ PO (09:07)
[2024-04-02 10:41] LABS: Hepatitis B Surface Antigen Negative (Negative)
[2024-04-02 10:46] LABS: HAV RESULT Negative (Negative); Hepatitis B Core IgM Result Negative (Negative)
[2024-04-02 10:58] LABS: Hepatitis C Virus Antibody Negative (Negative)
[2024-04-02 12:14] LABS: Glucose Point of Care 102 mg/dl (65-105)
--- NOTE | 2024-04-02 13:25 | PM.IMPN ---
Progress Note: A&P Assessment and Plan (1) Alcohol withdrawal syndrome: Code(s): F10.939 - Alcohol use, unspecified with withdrawal, unspecified Status: Acute Assessment and Plan: CIWA score was as high as 25. It has improved over the past few days now down to 10-11 range He remains on scheduled Librium and is tolerating this well. On high-dose thiamine, dextrose and folate. Encouraged oral intake try to limit coffee intake. Supplements added. Continue Protonix. Care coordination has been consulted to provide information about benefits of abstaining from alcohol use Continue PT and OT. Change to oral thiamine. Stop IV fluids. (2) Alcoholic intoxication: Code(s): F10.929 - Alcohol use, unspecified with intoxication, unspecified Status: Acute Assessment and Plan: Alcohol level elevated on admission ( 03/29/2024) Resolved (3) Transaminitis: Code(s): R74.01 - Elevation of levels of liver transaminase levels Status: Acute Assessment and Plan: Patient with alcoholic hepatitis. LFTs are up and down still. RUQ US showing hepatic steatosis. Hepatitis panel negative Follow (4) Acute hyponatremia: Code(s): E87.1 - Hypo-osmolality and hyponatremia Status: Acute Assessment and Plan: Sodium 120 on admission. Sodium has climbed slowly over the past few days. Suspect related to beer proteinemia. Na stable at 129 today. Check urine studies Continue fluid restriction Plan Hypokalemia - replace again. Mag 1.7 so will replace as well. Thrombocytopenia - Plt count down to 66K. Related to hepatitis/alcohol. plt count better at 101 Hypertension - Patient's blood pressure was reviewed on 04/02. Blood pressure remains well controlled. Diarrhea - CDiff cancelled. Suspect related to poor oral intake and alcohol use. DVT prophylaxis - SCDs, lovenox Code status - full Disp - home anytime if he does well with PT/OT Subjective Date/time seen: 04/02/24 13:25 Interval history: 63yo male with alcoholism and HTN here for alcohol withdrawal. Feeling better. Still feels nauseous and anxious. Staying with dtr curently. Exam Narrative: AF 97.7 120/86 86 18 98% ra Gen - NARD Chest - CTA bilaterally, nml RR CV - RRR S1/S2 Abd - Soft, NT/ND, Positive BS Ext - No pedal edema Neuro - Alert and appropriate. Nonfocal exam. Psych - Nml mood and affect. slow to respond at times. mild tremors noted Skin - Warm and dry Objective Data Vital Signs Vital Signs: Vital Signs - 24 hr 04/01/24 14:46 04/01/24 16:42 04/01/24 20:00 Temperature 97.1 F L Pulse Rate 78 Pulse Rate [Monitor] Respiratory Rate 18 Blood Pressure 144/82 H Pulse Oximetry 100 100 Oxygen Delivery Room Air Room Air Fraction of Inspired Oxygen 04/01/24 20:26 04/02/24 04:44 04/02/24 08:00 Temperature 97.6 F 97.7 F Pulse Rate 79 76 Pulse Rate [Monitor] 86 Respiratory Rate 18 18 Blood Pressure 135/78 122/86 120/86 Pulse Oximetry 100 98 Oxygen Delivery Fraction of Inspired Oxygen 04/02/24 08:00 Temperature Pulse Rate 76 Pulse Rate [Monitor] Respiratory Rate 18 Blood Pressure Pulse Oximetry 98 Oxygen Delivery Room Air Fraction of Inspired Oxygen 21 Intake/Output Intake/Output: Intake & Output 03/30/24 03/31/24 04/01/24 04/02/24 23:59 23:59 23:59 23:59 Intake Total 3488 4353 2573 1722 Output Total 4000 1600 3975 [address] [place] [id number] -[id number] -78 Meds/Results Medications: Active Medications Generic Name Dose Route Start Last Admin Trade Name Freq PRN Reason Stop Dose Admin Artificial Tears 1 drop 03/30/24 10:58 03/30/24 12:31 Artificial Tears Ophth Soln 15 Ml Bottle EACH EYE 1 drop QID PRN Administration Dry Eye(s) Chlordiazepoxide HCl 50 mg 03/30/24 18:00 04/02/24 12:57 Chlordiazepoxide (*Crx) 25 Mg Capsule PO 50 mg Q6HR SHRUTHI Administration Enoxaparin Sodium 40 mg
[2024-04-02 15:27] LABS: Creatinine Urine 24.8 mg/dL
[2024-04-02 15:28] LABS: Sodium Urine Random 32 meq/L
[2024-04-02 23:19] LABS: Glucose Point of Care 108 mg/dl (65-105)
[2024-04-03] MEDS: chlordiazePOXIDE (*CRX) 25 MG CAPSULE 50 MG PO ×2 (00:20→06:44)
[2024-04-03 05:44] LABS: Glucose Point of Care 110 mg/dl (65-105)
[2024-04-03 05:52] VITALS: BP 130/84; PULSE 73; RESP 13; TEMP 36.1; O2SAT 97
[2024-04-03 07:00] LABS: Hematocrit 41.8 % (42.0-52.0); Hemoglobin 14.5 g/dL (14.0-18.0); Mean Corpuscular Volume 95.2 fl (80-100); Red Blood Count 4.39 M/mm3 (4.6-6.20); White Blood Count 3.2 K/mm3 (4.5-10.0)
[2024-04-03 07:01] LABS: Basophils Percent Auto 1.2 % (0.2-1.2); Eosinophils Absolute Auto 0.2 K/mm3 (0-0.3); Eosinophils Percent Auto 6.2 % (0-4.4); Immature Granulocyte Absolute 0.01 K/mm3 (0.00-0.031); Immature Granulocyte Percent A 0.3 % (0-0.5); Lymphocytes Absolute Auto 1.14 K/mm3 (0.9-3.2); Lymphocytes Percent Auto 35.3 % (18.3-44.2); Mean Corpuscular HGB Conc 34.7 g/dl (32-36); Monocytes Absolute Auto 0.5 K/mm3 (0.1-0.6); Monocytes Percent Auto 16.4 % (2.6-8.5); Neutrophils Absolute Auto 1.3 K/mm3 (1.3-6.7); Neutrophils Percent Auto 40.6 % (45.5-73.1); Platelet Count Result 110 k/mm3 (150-375); Red Cell Distribution Width 13.8 % (11.5-14.5)
[2024-04-03 07:10] LABS: Alanine Aminotransferase 85 U/L (6-50); Albumin Level 3.3 g/dL (3.5-5.1); Alkaline Phosphatase 55 U/L (38-126); Anion Gap 6 mmol/L (4-12); Aspartate Amino Transferase 71 U/L (17-59); Bilirubin,Total 0.7 mg/dL (0.2-1.3); Blood Urea Nitrogen 5 mg/dL (9-20); Calcium 8.4 mg/dL (8.4-10.2); Carbon Dioxide 24 mmol/L (22-30); Chloride 98 mmol/L (98-107); Estimated CRCL calculation 126 ml/min; Estimated Glomerular Filt Rate > 60; Glucose 103 mg/dL (65-110); Potassium 3.3 mmol/L (3.4-5.0); Sodium 128 mmol/L (137-145)
[2024-04-03] MEDS: PANTOPRAZOLE 40 MG TABLET PO (09:00)
[2024-04-03] MEDS: POTASSIUM CHLORIDE 20 MEQ ER TABLET 40 MEQ PO (09:00)
[2024-04-03] MEDS: THIAMINE HCL 100 MG TABLET PO (09:00)
[2024-04-03] MEDS: FOLIC ACID 1 MG TABLET PO (09:00)
[2024-04-03] MEDS: ENOXAPARIN 40 MG/0.4 ML SYRINGE SUB-Q (09:00)
[2024-04-03] MEDS: MULTIVITAMINS THERAPEUTIC TAB (*BKC) 1 TABLET PO (09:00)
[2024-04-03 12:55] LABS: Glucose Point of Care 97 mg/dl (65-105)
[2024-04-03 14:00] VITALS: BP 116/85; PULSE 94; RESP 16; TEMP 36.6; O2SAT 100
--- NOTE | 2024-04-03 15:20 | PM.DS ---
DS: Admitting Diagnosis Discharge Date 04/03/24 Admitting Diagnosis Alcohol withdrawal DS: Discharge Diagnosis Discharge Diagnosis (1) Alcohol withdrawal syndrome: Code(s): F10.939 - Alcohol use, unspecified with withdrawal, unspecified Status: Acute (2) Alcoholic intoxication: Code(s): F10.929 - Alcohol use, unspecified with intoxication, unspecified Status: Acute (3) Transaminitis: Code(s): R74.01 - Elevation of levels of liver transaminase levels Status: Acute (4) Acute hyponatremia: Code(s): E87.1 - Hypo-osmolality and hyponatremia Status: Acute DS: Summary Hospital Course Reason for hospitalization: 63yo male with alcoholism and HTN here for alcohol withdrawal. Please see H&P for details Hospital Course: Patient presents with tremors from alcoholism. Alcohol level elevated on admission. LFTs are up and down. RUQ US showing hepatic steatosis. Hepatitis panel negative. Patient with alcoholic hepatitis. He was admitted and started on CIWA protocol. CIWA score was as high as 25. He was started on scheduled Librium and tolerated this well. CIWA score improved over the past few days and was able to wean down the Librium. He was on high-dose thiamine, dextrose and folate. Encouraged oral intake try to limit coffee intake. Supplements added. Also treated with Protonix. Care coordination has been consulted to provide information about benefits of abstaining from alcohol use. He worked with PT and OT and was up walking in the room with therapy using a walker. Sodium 120 on admission related to alcoholism. Sodium has climbed slowly over the past few days and now stable. Continue fluid restriction. Hypokalemia noted and potassium replaced. Thrombocytopenia noted with Plt count down to 66K. Related to hepatitis/alcohol. plt count better at 110K. He overall did well and was able to be discharged on 04/03/24. He is from [place] and is here visiting brothers (2) and sister (1). He is not staying with them but instead is staying in a hotel locally. Since he will be driving, Librium stopped. We had no way to contact his family and he was unwilling/unable to provide helpful information. Status at Discharge Cognitive/behavioral status at discharge: stable Time Spent with Patient Time attestation: Total time spent providing and/or coordinating discharge services: 35 minutes Time spent: Greater than 30 minutes Exam Narrative: AF 97.9 116/85 94 16 100% ra Gen - NARD Chest - CTA bilaterally, nml RR CV - RRR S1/S2 Abd - Soft, NT/ND, Positive BS Ext - No pedal edema Psych - Nml mood and affect. slow to respond at times. mild tremors noted Skin - Warm and dry DS: Data Data Completed and Pending Labs on day of discharge: Labs from last 24 hours 04/03/24 04/03/24 04/03/24 12:46 06:28 05:38 WBC 3.2 L RBC 4.39 L Hgb 14.5 Hct 41.8 L MCV 95.2 MCH 33.0 MCHC 34.7 RDW 13.8 Plt Count 110 L MPV 10.0 Immature Gran % (Auto) 0.3 Neut % (Auto) 40.6 L Lymph % (Auto) 35.3 [place] % (Auto) 16.4 H Eos % (Auto) 6.2 H Baso % (Auto) 1.2 Lymph # (Auto) 1.14 [place] # (Auto) 0.5 Eos # (Auto) 0.2 Baso # (Auto) 0.0 Abs Immat Gran (auto) 0.01 Absolute Neuts (auto) 1.3 Absolute Nucleated RBC 0.000 Nucleated RBC % 0.0 Sodium 128 L Potassium 3.3 L Chloride 98 Carbon Dioxide 24 Anion Gap 6 BUN 5 L Creatinine 0.60 L Estim Creat Clear Calc 126 Estimated GFR > 60 Glucose 103 POC Capillary Glucose 97 110 H Calcium 8.4 Magnesium 2.0 Total Bilirubin 0.7 AST 71 H ALT 85 H Alkaline Phosphatase 55 Total Protein 6.0 L Albumin 3.3 L Ur Random Sodium Urine Creatinine 04/02/24 04/02/24 23:16 14:28 WBC RBC Hgb Hct MCV MCH MCHC RDW Plt Count MPV Immature Gran % (Auto) Neut % (Auto) Lymph % (Auto) [place] % (A
[2024-04-03 16:00] VITALS: PULSE 84
--- NOTE | 2024-04-03 18:10 | PC.NURSE ---
I called [facility] in [place], where pt had been staying prior to admission, they confirmed that they do have a vacancy for tonight and can accommodate pt, I did inform front desk associate that pt's belongings were left at [facility] since 03/29 and that there have been calls placed to manager talent about securing his belongings, the plant clerk states he will reach out and see where those are located, I did mention that pt's cell phone is with those belongings, pt was sent with [facility] that hospital provided and cab voucher to ensure he arrived at [facility]
== END 2024-04-03 18:10 | disposition home or self-care (01) | DRG 775 ==
LOC: ANHED 13:56 → ANHIMU 18:27 → ANH3MEDSUR 04-02 00:26
PROVIDERS: Emergency Medicine; Nurse Practitioner Acute Care; Admitting Provider Internal Medicine; Emergency Provider Student in an Organized Health Care Education/Training Program; Visit Provider Internal Medicine
DX: F10.139 Alcohol abuse with withdrawal, unspecified (principal); F10.129 Alcohol abuse with intoxication, unspecified; E87.1 Hypo-osmolality and hyponatremia; I10 Essential (primary) hypertension; R74.01 Elevation of levels of liver transaminase levels; D69.6 Thrombocytopenia, unspecified; R19.7 Diarrhea, unspecified
CPT/HCPCS: 36415; 71046; 76705; 80048; 80053; 80074; 80307; 81003; 82570; 82607; 82746; 82948; 83735; 84295; 84300; 84443; 85025; 85055; 87493; 93005; 96361; 96365; 96366; 96375; 97110; 97116; 97161; 97165; 97530; 97535; 99285; A9270; J0780; J1650; J2060; J2405; J2560; J3411; J3475; J7030; J7042